=== PATIENT | male | born 1980 | race Caucasian/White ===

== ENCOUNTER 2017-10-29 11:45 | Emergency (ER) | payer BC ==
[~2017-10-29] VITALS: Ht 190.5 cm; Wt 95.5 kg
[~2017-10-29 11:45] MED LIST: AMOXICILLIN/CL875 MG PO; AUGMENTIN875TAB OR; CIPRODEX1 ML OT; EPIPEN 2-PAK0.3 MG IM; MEDDOSEPAK PO; MELOXICAM15 MG PO; PROAIR HFA IN; TAM75CAP PO; TRAMADOL HCL50 MG OR; VENTOLIN HFA IN
[2017-10-29 13:00] LABS: INFLUENZA A NONE DETECTED (NONE DETECT); INFLUENZA B NONE DETECTED (NONE DETECT)
[2017-10-29] MEDS ORDERED: ONDANSETRON4 MG PO (13:13)
[2017-10-29] MEDS ORDERED: ZPAK PO (13:13)
[2017-10-29 13:25] VITALS: BP 114/75
== END 2017-10-29 13:25 | disposition home or self-care (01) | DRG 153 ==
LOC: ED 11:45
PROVIDERS: Family Medicine
DX: J06.9 Acute upper respiratory infection, unspecified (principal); R05 Cough; R11.2 Nausea with vomiting, unspecified; R50.9 Fever, unspecified; R19.7 Diarrhea, unspecified; R09.81 Nasal congestion

== ENCOUNTER 2017-12-29 11:27 | Emergency (ER) | payer BC ==
[~2017-12-29] VITALS: Ht 190.5 cm; Wt 100.0 kg
[~2017-12-29 11:27] MED LIST changes: +ONDANSETRON4 MG PO; +ZPAK PO
[2017-12-29] MEDS ORDERED: MEDDOSEPAK PO (12:28)
[2017-12-29 12:30] VITALS: BP 132/87
== END 2017-12-29 12:31 | disposition home or self-care (01) | DRG 918 ==
LOC: ED 11:27
DX: T63.441A Toxic effect of venom of bees, accidental (unintentional), initial encounter (principal); R22.1 Localized swelling, mass and lump, neck; J45.909 Unspecified asthma, uncomplicated